=== PATIENT | female | born 1985 | race American Indian/Alaskan Native ===

== ENCOUNTER 2021-02-09 09:47 | Emergency (ER) | payer SELFPAY ==
--- NOTE | 2021-02-09 10:05 | Emergency Department Report ---
ED Female HPI - General Chief complaint: Skin/Abscess/Foreign Body Stated complaint: HAVE A SPONGE INSIDE OF ME Time Seen by Provider: 02/09/21 10:04 Source: patient Mode of arrival: Ambulatory Limitations: No Limitations - History of Present Illness Initial comments: 35-year-old female presents to the emergency room stating that she ran out of tampons and used a make-up spines and has dislodged in her vaginal area since yesterday. Patient denies any nausea no vomiting no fever no chills but does admit to some mild pelvic discomfort. She is 3 para 3 last menstrual period started 02/07/2021. Patient is a diabetic and is currently on Metformin. -: Last night Location: other (Vaginal vault) Consistency: constant Improves with: none Worsens with: none Are you Now?: No Last Menstrual Period: 02/07/21 EDC: 11/14/21 Associated Symptoms: vaginal bleeding - Related Data Sexually active: Yes : 3 Para: 3 Previous Rx's Medication Instructions Recorded Last Taken Type metroNIDAZOLE [Flagyl] 500 mg PO Q12HR 7 Days #14 tab 02/09/21 Unknown Rx Allergies Allergy/AdvReac Type Severity Reaction Status Date / Time No Known Allergies Allergy Verified 02/09/21 10:00 ED Review of Systems ROS: Stated complaint: HAVE A SPONGE INSIDE OF ME Other details as noted in HPI Comment: All other systems reviewed and negative ED Past Medical Hx - Past Medical History Previous Medical History?: Yes Hx Diabetes: Yes - Surgical History Past Surgical History?: Yes Additional Surgical History: - Medications Home Medications: Home Medications Medication Instructions Recorded Confirmed Last Taken Type metroNIDAZOLE [Flagyl] 500 mg PO Q12HR 7 Days #14 tab 02/09/21 Unknown Rx ED Physical Exam - General Limitations: No Limitations General appearance: alert, in no apparent distress - Head Head exam: Present: atraumatic, normocephalic - Eye Eye exam: Present: normal appearance - Neck Neck exam: Present: full ROM - Respiratory Respiratory exam: Absent: respiratory distress, accessory muscle use - Cardiovascular Cardiovascular Exam: Present: regular rate - GI/Abdominal GI/Abdominal exam: Present: soft. Absent: distended, tenderness - External exam: Present: bleeding Speculum exam: Present: vaginal bleeding, foreign body Bi-manual exam: Present: normal bi-manual exam - Extremities Exam Extremities exam: Present: normal inspection, full ROM - Back Exam Back exam: Present: normal inspection - Neurological Exam Neurological exam: Present: alert, oriented X3, normal gait - Psychiatric Psychiatric exam: Present: normal affect, normal mood - Skin Skin exam: Present: warm, dry, intact, normal color. Absent: rash ED Course Vital Signs 02/09/21 09:59 Temperature 98.1 F Pulse Rate 81 Respiratory 18 Rate Blood Pressure 121/82 O2 Sat by Pulse 96 Oximetry ED Medical Decision Making - Medical Decision Making 35-year-old female presents to the emergency room stating that she ran out of tampons and used a make-up spines and has dislodged in her vaginal area since yesterday. Patient denies any nausea no vomiting no fever no chills but does admit to some mild pelvic discomfort. She is 3 para 3 last mens trual period started 02/07/2021. Patient is a diabetic and is currently on Metformin. Removal of foreign body which was a very large make-up sponge all pieces intact. We'll place patient on Flagyl instructed her do not put any foreign bodies into her vaginal area unless is a tampon. She can use pads or an emergency use a washcloth. Follow-up with her [facility]. Critical care attestation.: If time is entered above; I have spent that time in minutes in the direct care of this critically ill patient, excluding procedure time. ED Disposition Clinical Impression: Foreign body in vulva and vagina, initial encounter Disposition: - TO HOME OR SELFCARE Is pt being admited?: No Does the pt Need Aspirin: No Condition: Stable Instructions: Vaginal Foreign Body, [id number] Additional Instructions: Complete antibiotics as prescribed. Do not put foreign objects in vaginal area if you run out of tampon and use a pad or washcloth. Follow-up with a [facility]. Prescriptions: metroNIDAZOLE [Flagyl] 500 mg PO Q12HR 7 Days #14 tab Referrals: Your, [employer] [facility] [employer] [Other] - 3-5 Days Time of Disposition: 10:30
== END 2021-02-09 10:42 | disposition home or self-care (01) ==
LOC: ED 09:47
CPT/HCPCS: 99282; 99283